=== PATIENT | male | born 1975 | race Caucasian/White ===

== ENCOUNTER 2024-01-12 12:30 | Emergency (ER) | payer OTHER ==
[2024-01-12] MEDS: Lidocaine 1% with EPINEPHrine 1:200,000 30 ML SDV INJECT STA (12:55)
== END 2024-01-12 14:37 | disposition home or self-care (01) ==
LOC: MW.ED 12:30
DX: S81.812A Laceration without foreign body, left lower leg, initial encounter (principal); Z88.0 Allergy status to penicillin; Z75.8 Other problems related to medical facilities and other health care; W26.8XXA Contact with other sharp object(s), not elsewhere classified, initial encounter; Y99.0 Civilian activity done for income or pay
CPT/HCPCS: 12002; 73590; 99283; J3490; 12001; 99282

== ENCOUNTER 2024-02-10 14:15 | Emergency (ER) | payer OTHER | END 2024-02-10 15:42 | disposition home or self-care (01) | LOC: MW.ED 14:15 | DX: T81.33XA Disruption of traumatic injury wound repair, initial encounter (principal); L03.116 Cellulitis of left lower limb; Z88.0 Allergy status to penicillin; Z75.8 Other problems related to medical facilities and other health care | CPT/HCPCS: 99282 ==

== ENCOUNTER 2024-03-12 13:14 | Emergency (ER) | payer BC ==
[2024-03-12] MEDS: methylPREDNISolone Sodium Succinate 40 MG/1 ML SDV IM STA (14:03)
== END 2024-03-12 14:42 | disposition home or self-care (01) ==
LOC: MW.ED 13:14
DX: L29.9 Pruritus, unspecified (principal); Z88.0 Allergy status to penicillin; Z75.8 Other problems related to medical facilities and other health care; Z79.899 Other long term (current) drug therapy
CPT/HCPCS: 96372; 99282; J2919